=== PATIENT | male | born 1940 | race Caucasian/White ===

== ENCOUNTER → 2021-03-12 12:40 | Outpatient (BNVA) | payer MEDICARE, SELFPAY | PROVIDERS: Visit Provider Nurse Practitioner Family | DX: N30.01 Acute cystitis with hematuria (principal) | CPT/HCPCS: 81000 ==

== ENCOUNTER → 2021-05-10 10:28 | Outpatient (BNVA) | payer MEDICARE, SELFPAY | PROVIDERS: Visit Provider Emergency Medicine | DX: Z20.822 Contact with and (suspected) exposure to COVID-19 (principal); J06.9 Acute upper respiratory infection, unspecified; H66.003 Acute suppurative otitis media without spontaneous rupture of ear drum, bilateral | CPT/HCPCS: 87635 ==

== ENCOUNTER → 2023-06-04 10:51 | Outpatient (BNVA) | payer MEDICARE, SELFPAY | PROVIDERS: PCP Family Medicine; Visit Provider Nurse Practitioner Family | DX: R68.89 Other general symptoms and signs (principal) | CPT/HCPCS: 87400 ==